=== PATIENT | female | born 1950 | race Caucasian/White ===

== ENCOUNTER 2017-10-22 11:46 | Outpatient (CLI) | payer OTHER ==
[2017-10-22] MEDS ORDERED: SALINE FLUSH 10 ML DISP.SYRIN IVF ONE ×2 (11:56→12:00)
[2017-10-22] MEDS ORDERED: NORMAL SALINE 500 ML IV.SOLN IV ONE (12:00)
== END 2017-10-22 11:47 ==
LOC: INF 11:46
PROVIDERS: ATTEND Family Medicine
DX: E86.0 Dehydration (principal)
CPT/HCPCS: 96360; 96361; J7060; S1016